=== PATIENT | male | born 1970 | race Hispanic/Latino ===

== ENCOUNTER → 2022-09-25 | Outpatient (CLI) | payer BC, OTHER ==
[~2022-09-25] MED LIST: GADOTERATE MEGLUMINE 10 MMOL/20 ML VIAL IV ONE
== END | disposition home or self-care (01) ==
LOC: RAH 08:23
PROVIDERS: ATTEND Internal Medicine
DX: G44.52 New daily persistent headache (NDPH) (principal)
CPT/HCPCS: 70553; A9575